=== PATIENT | male | born 1985 | race Two or more races ===

== ENCOUNTER 2025-05-10 06:56 | Day surgery (SDC) | payer OTHER ==
[2025-05-10] MEDS ORDERED: propofoL 500 MG/50 ML 50 ML ONE (07:10)
[2025-05-10] MEDS: Lactated Ringers 1,000 ML IV SCH (07:25)
[2025-05-10] MEDS ORDERED: fentaNYL 100 MCG/2 ML SDV ONE (07:26)
[2025-05-10] MEDS ORDERED: Ondansetron 4 MG/2 ML SDV ONE (07:26)
[2025-05-10] MEDS ORDERED: Ketamine HCL/NACL, ISO-OSM 50 MG/5 ML Syringe ONE (07:32)
[2025-05-10] MEDS ORDERED: Ketorolac 30 MG/ML SDV ONE (07:32)
== END 2025-05-10 09:15 | disposition home or self-care (01) ==
LOC: MW.SDS 06:56
PROVIDERS: ATTEND Surgery
DX: K29.50 Unspecified chronic gastritis without bleeding (principal); K20.90 Esophagitis, unspecified without bleeding; K22.89 Other specified disease of esophagus; K64.8 Other hemorrhoids; K59.00 Constipation, unspecified; K92.1 Melena; E66.9 Obesity, unspecified; Z68.29 Body mass index [BMI] 29.0-29.9, adult; Z79.899 Other long term (current) drug therapy
CPT/HCPCS: 43239; 45380; 88305; 88342; J1885; J2003; J2405; J2704; J3010; J7120; 00813; J3490